=== PATIENT | female | born 1990 | race Caucasian/White ===

== ENCOUNTER 2016-11-08 08:45 | Emergency (ER) | payer OTHER ==
[~2016-11-08] VITALS: Wt 93.0 kg
[2016-11-08] MEDS ORDERED: POLY10DR19 RIGHT EYE (09:20)
--- NOTE | 2016-11-08 09:31 | ERD ---
ER Documentation Chief Complaint Date/Time DATE: 11/08/16 TIME: 09:29 Chief Complaint R EYE REDNESS HPI 26-year-old female otherwise healthy presents with right eye discharge and redness and she woke up with this morning. Denies blurry vision, pain, trauma. She states she has had URI symptoms for about a week now. ROS All systems reviewed and are negative except as per history of present illness. Medications Home Meds Active Scripts Polymyxin B Sulfate-TMP* (Polymyxin B-TMP Eye Drops*) 10 Ml Drops, 1 DROP RIGHT EYE QID for 7 Days, EA Prov:LILIA SHEPPARD PA-C 11/08/16 Allergies Allergies: Coded Allergies: No Known Allergy (Unverified , 11/08/16) PMhx/Soc Medical and Surgical Hx: pt denies Medical Hx, pt denies Surgical Hx Hx Alcohol Use: No Hx Substance Use: No Hx Tobacco Use: No Smoking Status: Never smoker Physical Exam Vitals Vital Signs Date Time Temp Pulse Resp B/P Pulse Ox O2 Delivery O2 Flow Rate FiO2 11/08/16 09:01 98.0 96 18 135/86 99 Physical Exam General: Well-developed, well-nourished. The patient appears in no acute distress. HEENT: Head is normocephalic, atraumatic. No scleral icterus. Right eye is injection, mild crusting to the lower eyelid, extraocular movements intact, eyes are Piero Neck: Supple. Nontender. Lungs: Clear to auscultation. Normal air movement. Heart: Regular rate and rhythm. S1 and S2 are normal. No murmurs, gallops, or rubs. Abdomen: Nondistended. Extremities: No clubbing or cyanosis. Moving extremities x 4. No weakness. Neurologic: Alert and oriented 3. No focal deficits. Normal speech and gait. Skin: Normal turgor. No rash or lesions. Procedures/MDM 26-year-old female presents with conjunctivitis limited to the right eye, no signs of an orbital cellulitis, periorbital cellulitis, acute angle-closure glaucoma, foreign body, globe rupture. Patient's ocular symptoms have stabilized while they have been evaluated in the department and are appropriate for outpatient work up. No evidence of ruptured globe, retinal detachment, acute angle closure glaucoma , or deep space infection. Departure Diagnosis: Primary Impression: Conjunctivitis of right eye Condition: Good Patient Instructions: Conjunctivitis, Bacterial Additional Instructions: Call your primary care doctor TOMORROW for an appointment during the next 1-2 days.See the doctor sooner or return here if your condition worsens before your appointment time. LILIA SHEPPARD PA-C Nov 08, 2016 09:31
== END 2016-11-08 09:26 | disposition home or self-care (01) ==
LOC: FTE 08:45
DX: H10.9 Unspecified conjunctivitis (principal)
CPT/HCPCS: 99283

== ENCOUNTER 2018-06-19 17:57 | Emergency (ER) | END 2018-06-19 22:46 | disposition home or self-care (01) ==